=== PATIENT | male | born 1970 | race Caucasian/White ===

== ENCOUNTER 2017-05-15 13:01 | Day surgery (SDC) | payer OTHER ==
--- NOTE | 2017-05-14 18:21 | History and Physical ---
History & Physical Date May 14, 2017. Chief Complaint left foot pain History of Present Illness The patient is a 47 year old male with complaints of a left foot injury that happened at [facility]. He had a fall at work and had x-rays that showed fx's of the 2nd, 3rd, and 4th metatarsals. He was seen elsewhere and the fx's were treated conservatively in a walking boot. He had persistent pain and was sent for a 2nd opinion with us. After review of the x-rays, it was determined the fx' s of the 2nd and 3rd metatarsals need to be fixed. Past Medical/Surgical History PMH: Hx of [place] in 2014 with stents, HTN, High cholesterol, anemia, acid reflux, low back pain Past surgical hx: hip surgery, heart catheterization with stents Social hx: 1/2 ppd smoking for 20 years. Allergies Coded Allergies: No Known Allergies (Unverified , 05/14/17) Home Medications Scheduled Carvedilol (Coreg), 1 TAB PO BID Lisinopril (Prinivil), 1 TAB PO DAILY Omeprazole (Prilosec), 10 MG PO DAILY Physical Examination Skin: warm/dry, no rash Eyes: normal inspection ENT: normal ENT inspection Head: normocephalic, atraumatic Neck: supple, no adenopathy, trachea midline Respiratory/Chest: lungs clear, normal breath sounds, no respiratory distress Cardiovascular: regular rate, rhythm, no murmur Abdomen / GI: normal bowel sounds, non tender Extremities: + pertinent finding (Left foot: NWB LLE. +swelling at the dorsal foot. Tender over the 2nd/3rd metatarsal shafts. Dorsal prominence of the 2nd/ 3rd metatarsals. No ROM or strength testing performed.) Neurologic/Psych: no motor/sensory deficits, alert, oriented x 3 Diagnosis left foot 2nd, 3rd, 4th metatarsal fx's Plan of Treatment Recommend an ORIF left 2nd and 3rd metatarsal fx's, closed tx 4th metatarsal fx. All potential risks, benefits, complications, alternatives, and rehab have been discussed and he wishes to proceed. The surgery will be scheduled for 05.15.17.
[~2017-05-15] VITALS: Ht 195.6 cm; Wt 93.0 kg
[~2017-05-15 13:01] MED LIST: CARV3.122 PO; CEFAZOLIN 2000MG IV PUSH 10 ML IV SCH; LISI5TAB PO; OMEP10CA4 PO
[2017-05-15 13:21] VITALS: BP 155/91; PULSE 89; TEMP 36.9; O2SAT 96; Ht 195.6 cm; Wt 93.0 kg
--- NOTE | 2017-05-15 13:55 | History & Physical Bridge Note ---
H&P Re-Evaluation Bridge Note: I have examined the patient, reviewed the History & Physical and in the interval since the performance of the History & Physical I have noted the following changes of clinical significance: No changes noted
[2017-05-15 14:01] LABS: BASO % 0.6 %; BASO ABS # 0.04 K/uL (0-0.2); EOS % 3.4 %; EOS ABS # 0.25 K/uL (0-0.5); HEMATOCRIT 42.2 % (42-52); IG# 0.01 K/uL (0.00-0.02); LYMPH % 40.9 %; LYMPH ABS # 2.97 K/uL (1.2-3.4); MEAN CELL VOLUME 90.2 fL (80-100); MEAN CORPUSCULAR HEMOGLOBIN 32.1 pg (25-34); MEAN PLATELET VOLUME 10.1 fL (7.4-10.4); MONO % 9.6 %; NEUT % 45.4 %; NEUT ABS # 3.29 K/uL (1.4-6.5); PLATELET COUNT 202 K/uL (130-400); RED CELL DISTRIBUTION WIDTH CV 13.2 % (11.5-14.5); RED CELL DISTRIBUTION WIDTH SD 43.4 fL (36.4-46.3); WHITE BLOOD COUNT 7.26 K/uL (4.8-10.8)
[2017-05-15 14:02] LABS: MEAN CORPUSCULAR HGB CONC 35.5 g/dl (32-36)
[2017-05-15] MEDS ORDERED: FENTANYL CITRATE INJ 50 MCG/1 ML 2 ML VIAL ONE ×3 (14:13→15:23)
[2017-05-15] MEDS ORDERED: MIDAZOLAM HCL 1 MG/ML 2ML VIAL ONE ×2 (14:13→14:17)
[2017-05-15 14:25] LABS: CREATININE 0.91 mg/dl (0.60-1.40); POTASSIUM 3.9 mmol/L (3.5-5.1)
[2017-05-15] MEDS ORDERED: BUPIVACAINE 0.5 % 5 MG/1 ML MPF 30ML VIAL ONE (14:37)
[2017-05-15] MEDS ORDERED: KETAMINE HCL INJ 50 MG/ML 10 ML VIAL ONE (15:12)
[2017-05-15] MEDS ORDERED: NEOSTIGMINE METHYLSULFATE 5 MG/5 ML SYR ONE (15:22)
[2017-05-15] MEDS ORDERED: ROCURONIUM BROMIDE 10 MG/ML 5 ML VIAL IV ONE (15:22)
[2017-05-15] MEDS ORDERED: ONDANSETRON INJ 2 MG/ML 2 ML VIAL ONE (15:22)
[2017-05-15] MEDS ORDERED: PROPOFOL IV EMULSION 10 MG/ML 20 ML VIAL IV ONE (15:22)
[2017-05-15] MEDS ORDERED: GLYCOPYRROLATE INJ 0.2 MG/ML VIAL ONE (15:22)
[2017-05-15] MEDS ORDERED: LIDOCAINE HCL 2% 2 ML VIAL (20MG/ML) ONE (15:22)
[2017-05-15] MEDS ORDERED: HYDROmorphone INJ 2 MG/ML SYR/VIAL ONE (15:23)
[2017-05-15] MEDS ORDERED: EpHEDrine SULFATE INJ 50 MG/ML AMP IV PRN (15:45)
[2017-05-15] MEDS ORDERED: HYDROmorphone INJ 1 MG/ML SYR IV PRN (15:45)
[2017-05-15] MEDS ORDERED: ATROPINE SULFATE 0.1 MG/ML 5ML SYR IV PRN (15:45)
[2017-05-15] MEDS ORDERED: ONDANSETRON INJ 2 MG/ML 2 ML VIAL IV PRN (15:45)
[2017-05-15] MEDS ORDERED: PROMETHAZINE HCL INJ 6.25 MG in SODIUM CHLORIDE 0.9% 50ML 50 ML IV PRN (15:45)
[2017-05-15] MEDS ORDERED: PROM25TA9 PO (16:09)
[2017-05-15] MEDS ORDERED: OXYC-57 PO (16:09)
[2017-05-15] MEDS ORDERED: ASPI81TA28 PO (16:09)
--- NOTE | 2017-05-15 16:11 | Discharge Instructions ---
Discharge Instructions Date of Service May 15, 2017. Admission Reason for Admission: Left Foot Displaced Fracture Of 2ND Metatarsal Bon Discharge Discharge Diagnosis / Problem: left foot 2nd and 3rd metatarsal fractures Discharge Goals Goal(s): Decrease discomfort, Improve function Activity Recommendations Activity Limitations: per Instructions/Follow-up section Weightbearing Status: Left non-weightbearing . Instructions / Follow-Up Instructions / Follow-Up ACTIVITY RECOMMENDATIONS: Limitations: No weight bearing to affected limb at all times. Ice and elevate the left lower extremity as much as possible over the next 7-10 days. "Toes above your nose." SPECIAL CARE INSTRUCTIONS: * Some drainage onto the dressing is normal and is no cause for alarm. * Some swelling is natural especially after walking. * When resting, keep your foot elevated above the level of your heart. * Call [facility] if you notice: -Increased drainage -Fever over 101 degrees F -Severe constant pain BANDAGE: * Leave bandage/cast in place unless otherwise directed. * Keep bandage/cast dry at all times. FOLLOW UP VISIT WITH DR. FELDER If appointment is not already scheduled: Please call [facility] after you get home today to schedule a follow-up appointment for [address] Felder at . Current Hospital Diet Patient's current hospital diet: Discharge Diet Recommended Diet: Regular Diet Procedures Procedures Performed: Debridement of non-union 2nd and 3rd metarsals, open reduction and internal fixation of 2nd and 3rd metatarsals, closed treatment of 4th metatarsal. Pending Studies Studies pending at discharge: no Medical Emergencies . Who to Call and When: Medical Emergencies: If at any time you feel your situation is an emergency, please call 911 immediately. . Non-Emergent Contact Non-Emergency issues call your: Surgeon Call Non-Emergent contact if: temperature is above 101, your pain is not controlled, your pain is worsening . "Provider Documentation" section prepared by Domenic Scott. . VTE Core Measure Inpt VTE Proph given/why not?: SCD's
[2017-05-15] MEDS ORDERED: OXYCODONE/ACETAMINOPHEN 5-325 TAB PO PRN (16:15)
--- NOTE | 2017-05-15 16:25 | [facility] Post Operative Brief Note ---
Immediate Operative Summary Operative Date May 15, 2017. Pre-Operative Diagnosis Left foot 2nd, 3rd and 4th metatarsal malunion fractures Post-Operative Diagnosis same, with malunion 2nd and 3rd metatarsal fractures Procedure(s) Performed Debridement of non-union 2nd and 3rd metarsals, 2. Open reduction and internal fixation of 2nd and 3rd metatarsal fractures, 3. Closed treatment of 4th metatarsal fracture, 4. Autografting 2nd and 3rd metatarsal fractures Surgeon Dr. Anuj Pierce Airplane Rigger Surgeon(s) Jose Bradley PA-C Estimated Blood Loss 2ML Findings See dict Specimens NO SPECIMEN Drains None Anesthesia GETT w/ partial ankle block Complication(s) None Disposition Recovery Room / PACU
--- NOTE | 2017-05-15 16:50 | DIAGNOSTIC IMAGING REPORT ---
INTRAOPERATIVE LEFT FOOT 2 VIEWS CLINICAL HISTORY: Metatarsal fractures COMPARISON STUDY: No previous studies for comparison. FINDINGS: 2 intraoperative fluoroscopic spot images are provided for interpretation. 10 seconds of fluoroscopic time was utilized. Single orthopedic wires traverse fractures involving the mid shafts of the second and third metatarsals. There is also a probable fracture involving the fourth metatarsal neck. The medial cortex of the fifth metatarsal head is ill-defined. IMPRESSION: Intraoperative radiographs demonstrating internal fixation of second and third metatarsal midshaft fractures Electronically signed by: James Guy M.D. 05/15/2017 4:49 PM Dictated Date/Time: 05/15/2017 4:47 PM
[2017-05-15] MEDS ORDERED: MEPERIDINE HCL 25 MG/ML CARP ONE (16:53)
[2017-05-15] MEDS ORDERED: NURSING VERBAL MED ORDER ONE (17:00)
[2017-05-15] MEDS: FENTANYL CITRATE INJ 50 MCG/1 ML 2 ML VIAL IV PRN ×4 (17:07→17:38)
[2017-05-15] MEDS ORDERED: MEPERIDINE HCL 25 MG/ML CARP IV PRN (17:15)
--- NOTE | 2017-05-15 17:21 | DIAGNOSTIC IMAGING REPORT ---
L FOOT MIN 3 VIEWS ROUTINE CLINICAL HISTORY: Postoperative evaluation. COMPARISON: Left foot intraoperative fluoroscopic images May 15, 2017. FINDINGS: K wire fixation of the second and third metatarsal fractures is noted. Fracture alignment is near anatomic. There is also a suspected fracture of the neck of the left fourth metatarsal. No unexpected radiopaque foreign bodies are noted. IMPRESSION: Post operative radiographs demonstrating internal fixation of second and third metatarsal mid shaft fractures. Electronically signed by: Donovan Pierce M.D. 05/15/2017 5:19 PM Dictated Date/Time: 05/15/2017 5:18 PM
--- NOTE | 2017-05-15 17:38 | Anesthesiology Progress Note ---
Anesthesia Post Op Note Date & Time May 15, 2017 at 17:38 Vital Signs Pain Intensity: 6.0 Vital Signs Past 12 Hours Date Time Temp Pulse Resp B/P (MAP) Pulse Ox O2 Delivery O2 Flow Rate FiO2 05/15/17 17:22 143/97 05/15/17 17:20 93 14 90 05/15/17 17:20 91 14 05/15/17 17:16 159/90 05/15/17 17:15 87 25 95 05/15/17 17:15 88 25 05/15/17 17:14 164/99 05/15/17 17:12 86 13 05/15/17 17:12 86 13 95 05/15/17 17:11 177/105 05/15/17 17:08 174/106 05/15/17 17:07 86 14 05/15/17 17:07 87 14 95 05/15/17 17:06 177/102 05/15/17 17:02 15 05/15/17 17:02 90 15 05/15/17 17:01 177/107 05/15/17 16:57 100 15 05/15/17 16:57 100 15 97 05/15/17 16:52 98 21 05/15/17 16:52 98 21 92 05/15/17 16:51 170/111 05/15/17 16:48 190/100 05/15/17 16:47 98 15 176/117 94 05/15/17 16:47 36.9 99 17 170/111 95 Oxymask 10 05/15/17 16:47 98 15 05/15/17 13:21 36.9 89 16 155/91 (112) 96 Room Air Notes Mental Status: alert / awake / arousable, participated in evaluation Pt Amnestic to Procedure: Yes Nausea / Vomiting: adequately controlled Pain: adequately controlled Airway Patency, RR, SpO2: stable & adequate BP & HR: stable & adequate Hydration State: stable & adequate Anesthetic Complications: no major complications apparent
[2017-05-15 18:01] VITALS: BP 139/62; PULSE 87; TEMP 36.4; O2SAT 95
[2017-05-15 18:31] VITALS: BP 146/79; PULSE 80; TEMP 36.5; O2SAT 96
--- NOTE | 2017-05-15 20:57 | OPERATIVE REPORT ---
DATE OF OPERATION: 05/15/2017 PREOPERATIVE DIAGNOSIS: Left second, third and fourth fracture malunion/nonunion. POSTOPERATIVE DIAGNOSIS: Same. PROCEDURE: 1. Open reduction internal fixation, left second and third metatarsal fractures. 2. Debridement of nonunion second and third metatarsal fractures. 3. Closed treatment fourth metatarsal fracture. 4. Autografting second and third metatarsal fractures. SURGEON: Woody Pierce DO. DOUGH PUNCHER: Michele Bradley PA-C. ANESTHESIA: General LMA with partial ankle block. SPECIMENS: None. DRAINS: None. COMPLICATIONS: None. BLOOD LOSS: 2 mL. 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 He had been initially seen and treated by Dr. Carver nonoperatively. The patient had significant pain and persistent deformity of his foot due to the fractures. The patient was then referred to my clinic and was then scheduled for surgery as indicated. After review of radiographs and other advanced imaging noting unsatisfactory alignment of the mid foot, the patient was scheduled for surgery as indicated. All potential risks, benefits, complications, alternatives, rehab, potential for incomplete relief of symptoms, need for further surgery, DVT, PE, , persistent pain, swelling, scarring, weakness, neurovascular injury, wound complications, hardware failure, nonunion, malunion were discussed with the patient. The patient decided to proceed with the procedure as indicated. DESCRIPTION OF PROCEDURE: The patient was taken to the operative suite and placed supine on the operating room table. After reviewing consent and identification of proper operative site, the patient was anesthetized, LMA was placed. Tourniquet was placed high on the left thigh over cast padding. Left lower extremity was then sterilely prepped and draped in usual fashion, elevated, and exsanguinated with an Esmarch bandage, tourniquet inflated to 350 mmHg. Next, a 15 blade scalpel was used to make an incision centered over the second metatarsal extending from the neck of the metatarsal proximally. The incision was then deepened through subcutaneous tissue. Meticulous hemostasis was achieved with a cautery. Full thickness skin flaps were developed. The extensor tendon was then identified, freed, retracted, and protected. There to be a bulbous collection of immature bone at the site of the fracture. This was then sharply debrided with a 15 blade scalpel and a rongeur back to [place] bone, which was significantly displaced and overriding. Once this was completed, a trial reduction was performed with traction and use of a reduction forceps. Next, a 15 blade scalpel was then used to make an incision centered over the third metatarsal from the neck of the metatarsal extending proximally. The incision was deepened to subcutaneous tissue. Meticulous hemostasis was achieved with electrocautery. Full thickness skin flaps were developed. The extensor tendons were identified, freed, retracted, and protected with a Weitlaner. Next, significant hypertrophic bone formation was noted with a malunited fracture of the third metatarsal. Next, a rongeur and 15 blade scalpel were used to debride the immature bone to [place] bone, which was then trialed, reduced with traction and a hemostat. Next, the radiographs confirmed adequate debridement of the immature bone. The fourth metatarsal alignment was noted to be acceptable and deemed appropriate for closed treatment. Next, the 0.062 inch K-wire was then taken and driven out the end of the shaft of the second metatarsal out the head of the second metatarsal into the plantar aspect of the pad of the foot in a retrograde fashion. This K wire was then passed into the shaft of the second metatarsal under live fluoroscopic assistance. This pin was then cut and capped with a Jergens ball. Next, the second 0.062 inch K-wire was then used to place an intramedullary canal of the third metatarsal, passed distally to the third metatarsal through the plantar pad of the foot and then retrograde fashion and this fracture was then reduced and then stabilized with 0.062 inch K wire driven in retrograde fashion into the shaft of the third metatarsal. This pin was then cut and capped with a Jergens ball distally. Next, the incisions were copiously irrigated with sterile normal saline and the dermis was then closed using buried interrupted 3-0 Vicryl, skin was closed with 4-0 nylon. Next, immature bone was packed around the second and third metatarsal fractures to act as autograft and aid in the healing process of the bones. Next, sterile compressive dressing was applied with Acticoat, sterile 4 x 4's, and cast padding was applied. Next, an ankle block was performed of 0.5% Marcaine plain, approximately 30 mL followed by application of a bulky Fede Woodard plaster splint placed in neutral dorsiflexion. The tourniquet was released. The patient was awakened and taken to recovery in stable condition. I attest to the content of the Intraoperative Record and any orders documented therein. Any exception s are noted below.
== END 2017-05-15 18:35 | disposition home or self-care (01) ==
LOC: C.ACU 13:01
PROVIDERS: ATTEND Orthopaedic Surgery Sports Medicine
DX: S92.34 Fracture of fourth metatarsal bone (principal); S92.332 Displaced fracture of third metatarsal bone, left foot; S92.322P Displaced fracture of second metatarsal bone, left foot, subsequent encounter for fracture with malunion; I25.2 Old myocardial infarction; I10 Essential (primary) hypertension; M06.9 Rheumatoid arthritis, unspecified; E78.00 Pure hypercholesterolemia, unspecified; K21.9 Gastro-esophageal reflux disease without esophagitis; F17.200 Nicotine dependence, unspecified, uncomplicated; Z95.5 Presence of coronary angioplasty implant and graft; I25.10 Atherosclerotic heart disease of native coronary artery without angina pectoris; E78.5 Hyperlipidemia, unspecified; W19.XXXD Unspecified fall, subsequent encounter

== ENCOUNTER → 2017-11-27 | Outpatient (CLI) | payer OTHER ==
[~2017-11-27] MED LIST changes: -CEFAZOLIN 2000MG IV PUSH 10 ML IV SCH; +CYAN100020 PO; +EVOL1.7I INJ; +IRON PO; +LISI-729 PO; -LISI5TAB PO; -OMEP10CA4 PO; +PRLSR20 PO; +RAPATHA INJ
--- NOTE | 2017-11-27 14:31 | DIAGNOSTIC IMAGING REPORT ---
CHEST 2 VIEWS ROUTINE CLINICAL HISTORY: Preoperative evaluation. COMPARISON STUDY: No previous studies for comparison. FINDINGS: There is suspected biapical scarring. No pneumothorax or pleural effusion is noted. Linear bibasilar opacities suggest atelectasis. There is no consolidation to suggest pneumonia and there is no evidence for pulmonary edema. Cardiomediastinal silhouette is unremarkable. IMPRESSION: No acute cardiopulmonary findings. Electronically signed by: Donovan Pierce M.D. 11/27/2017 2:29 PM Dictated Date/Time: 11/27/2017 2:26 PM
[2017-11-27 14:33] LABS: BASO % 0.7 %; BASO ABS # 0.05 K/uL (0-0.2); EOS % 4.5 %; EOS ABS # 0.34 K/uL (0-0.5); HEMATOCRIT 47.3 % (42-52); HEMOGLOBIN 16.5 g/dL (14.0-18.0); IG# 0.02 K/uL (0.00-0.02); LYMPH % 39.2 %; LYMPH ABS # 2.98 K/uL (1.2-3.4); MEAN CELL VOLUME 91.1 fL (80-100); MEAN CORPUSCULAR HEMOGLOBIN 31.8 pg (25-34); MEAN CORPUSCULAR HGB CONC 34.9 g/dl (32-36); MEAN PLATELET VOLUME 10.9 fL (7.4-10.4); MONO % 6.4 %; MONO ABS # 0.49 K/uL (0.11-0.59); NEUT % 48.9 %; NEUT ABS # 3.72 K/uL (1.4-6.5); PLATELET COUNT 228 K/uL (130-400); RED CELL DISTRIBUTION WIDTH CV 13.3 % (11.5-14.5); RED CELL DISTRIBUTION WIDTH SD 44.2 fL (36.4-46.3)
[2017-11-27 14:39] LABS: ALBUMIN 4.3 gm/dl (3.4-5.0); BLOOD UREA NITROGEN 13 mg/dl (7-18); CALCIUM 9.4 mg/dl (8.5-10.1); CARBON DIOXIDE 27 mmol/L (21-32); CREATININE 0.96 mg/dl (0.60-1.40); GLUCOSE 104 mg/dl (70-99); HEMOGLOBIN A1C 5.7 % (4.5-5.6); POTASSIUM 4.6 mmol/L (3.5-5.1); SODIUM 139 mmol/L (136-145)
== END | disposition home or self-care (01) ==
LOC: C.CPL 13:13
PROVIDERS: ATTEND Orthopaedic Surgery Sports Medicine
DX: Z01.811 Encounter for preprocedural respiratory examination (principal); Z01.812 Encounter for preprocedural laboratory examination